=== PATIENT | female | born 1975 | race Caucasian/White ===

== ENCOUNTER 2019-01-10 07:21 | Emergency (ER) | payer MEDICAID, BC ==
[2019-01-10] MEDS: DIAZEPAM 5 MG TAB PO (08:09)
[2019-01-10] MEDS: KETOROLAC 60 MG INJ IM (08:15)
== END 2019-01-10 08:27 | disposition home or self-care (01) ==
LOC: FTE 08:27
DX: M62.838 Other muscle spasm (principal)
CPT/HCPCS: 81025; 96372; 99284-25